=== PATIENT | female | born 1950 ===

== ENCOUNTER 2020-11-15 | Observation (INO) | payer MEDICARE, OTHER ==
[~2020-11-15] VITALS: Ht 160 cm; Wt 66.2 kg
[2020-11-16] VITALS (11 sets, daily range): BP systolic 113–139; BP diastolic 54–78; PULSE 58–87; TEMP 97.6–98.4
[2020-11-16] MEDS ORDERED: GLUCOSAMINE/CHO1 CA5 PO (00:54)
[2020-11-16] MEDS ORDERED: CALCIUM 600 PLU1 TAB PO (00:55)
[2020-11-16] MEDS ORDERED: ASPIRIN 81M81 MG/TA2 PO (00:55)
[2020-11-16] MEDS ORDERED: LIPITOR 80MG80 MG PO (00:55)
[2020-11-16] MEDS ORDERED: MICROZIDE12.5 MG PO (00:56)
[2020-11-16] MEDS ORDERED: VITAMIN D31000 I1 PO (00:56)
[2020-11-16] MEDS ORDERED: ESTRACE0.1 MG/GM VG (00:56)
[2020-11-16] MEDS ORDERED: PRINIVIL10 MG PO (00:57)
[2020-11-16] MEDS ORDERED: OMEGA-3 1000 MG1 CAP PO (01:07)
--- NOTE | 2020-11-16 03:49 | NUR ---
Arrived to room 349 via EMS stretcher. Oriented to room and policy. Admission assessement complete. Denies pain/nausea/shortness of breath. VS stable. INT to right [id number] without difficulty. Admission orders completed. Plan of care discussed for this shift to include pain and nausea control/NPO status/straining urine/calling for questions/concerns. Verbalizes understanding and denies needs. Call light in reach. Will monitor.
--- NOTE | 2020-11-16 04:52 | NUR ---
Rested off and on this shift. Denies pain/nausea/shortness of breath. VS remained stable. NPO. Voiding without difficulty-urine strained-sediment and mucous present. LR@125ml/hr to right AC 20g. Denies questions/concerns at this time. Call light in reach. Will monitor.
[2020-11-16] MEDS ORDERED: OSTEO-BI-FLEX 21 TAB PO (05:08)
[2020-11-16] MEDS ORDERED: THE MEDICINE S200 M2 PO (05:09)
[2020-11-16] MEDS ORDERED: ONE-A-DAY ESSE1 EACH PO (05:09)
[2020-11-16] MEDS ORDERED: MAGNESIUM500 MG PO (05:10)
--- NOTE | 2020-11-16 09:41 | NUR ---
Patient alert and oriented, answers questions appropriately. See assessment. Abdomen soft, non tender, non distended. No c/o abdomen or flank pain. No c/o urinary burning, frequency or hesitancy. No other c/o at this time.
--- NOTE | 2020-11-16 09:42 | NUR ---
To surgery with surgical staff at this time.
[2020-11-16] MEDS ORDERED: PYRIDIUM 100MG100 MG PO (11:05)
[2020-11-16] MEDS ORDERED: NORCO 325 MG-51 TAB PO (11:05)
--- NOTE | 2020-11-16 12:00 | NUR ---
Patient returns from cystoscopy at 1125. Assessment unchanged.
--- NOTE | 2020-11-16 13:31 | NUR ---
Initial visit; Patient and her thanked [employer] Specialist for offering God's blessings and wishing Sara well. Sara was receptive to having [employer] Records Specialist keep her in her prayers.
--- NOTE | 2020-11-16 15:32 | NUR ---
Discharge instructions reviewed with patient, verbalized understanding. Discharged via wheelchair to auto/home with spouse at 1505.
== END 2020-11-16 15:05 | disposition home or self-care (01) ==
LOC: MEDICAL → SURG 11-16 00:38
PROVIDERS: ADMIT Urology
DX: N13.2 Hydronephrosis with renal and ureteral calculous obstruction (principal); I10 Essential (primary) hypertension; E78.2 Mixed hyperlipidemia; M19.90 Unspecified osteoarthritis, unspecified site; Z91.041 Radiographic dye allergy status; Z79.899 Other long term (current) drug therapy; Z79.82 Long term (current) use of aspirin
CPT/HCPCS: C1769; G0378; J0690; J1100; J1885; J1940; J2405; J2704; J7030; Q9967